=== PATIENT | female | born 1955 | race Caucasian/White ===

== ENCOUNTER 2017-06-02 18:25 | Inpatient (IN) | payer MEDICAID ==
[~2017-06-02] VITALS: Ht 162.6 cm; Wt 70.0 kg
[~2017-06-02 18:25] MED LIST: asa PO; nyquil PO
[2017-06-02 18:47] LABS: URINE BLOOD (Dip) POC Trace-intact (NEGATIVE)
--- NOTE | 2017-06-02 18:48 | ERD ---
ER Documentation Chief Complaint Chief Complaint persistent flu HPI 61-year-old female with no significant previous medical history presents to the ED via rescue ambulance with multiple complaints including chest pain, palpitations, fevers and dyspnea. Patient reports a 3 month history of intermittent palpitations, sharp nonradiating chest pain, body aches, nonproductive cough, shortness of breath, fevers and chills. No leg pain or swelling. Denies exertional dyspnea, orthopnea or PND. Reports extreme cold insensitivity and symptoms usually brought on by me exposed to a fan or air conditioning. She reports having these symptoms almost yearly during the winter but they resolve in the summertime. No abdominal pain, nausea, vomiting , diarrhea or constipation. Denies dysuria, polyuria, hematuria or flank pain. She had negative workup in 2011 for chest pain. ROS All systems reviewed and are negative except as per history of present illness. Medications Home Meds Reported Medications Aspirin* (Aspirin*) 325 Mg Tablet, 325 MG PO Y for CHEST PAIN, TAB 06/02/17 Aspirin Ec (Aspir 81) 81 Mg Tablet.dr, 81 MG PO DAILY, #30 TAB 06/02/17 Ibuprofen* (Advil*) 200 Mg Capsule, 200 MG PO Q6H Y for PAIN, CAP 06/02/17 Discontinued Reported Medications [nyquil] No Conflict Check, TBS PO Q12, #1 07/15/11 [asa] No Conflict Check, 81 PO DAILY 07/15/11 [asa] No Conflict Check, 81 PO DAILY 07/15/11 Allergies Allergies: Coded Allergies: No Known Allergy (Unverified , 06/02/17) PMhx/Soc Reviewed in chart. As per HPI. Lives alone. History of Surgery: No Anesthesia Reaction: No Hx Neurological Disorder: No Hx Respiratory Disorders: No Hx Cardiac Disorders: No Hx Psychiatric Problems: No Hx Miscellaneous Medical Probl: No Hx Alcohol Use: No Hx Substance Use: No Hx Tobacco Use: No FmHx No coronary artery disease or sudden cardiac . Physical Exam Vitals Vital Signs Date Time Temp Pulse Resp B/P Pulse Ox O2 Delivery O2 Flow Rate FiO2 06/02/17 21:20 98.7 72 19 43/87 99 Nasal Cannula 2.0 06/02/17 20:10 98.5 72 18 136/76 99 Nasal Cannula 2.0 06/02/17 19:49 76 20 125/73 99 Room Air 06/02/17 18:40 Nasal Cannula 2 06/02/17 18:40 99.0 93 20 148/88 99 Room Air 06/02/17 18:26 98.4 95 16 164/81 98 Physical Exam Const: Alert, anxious no acute distress. Head: Atraumatic Eyes: Normal Conjunctiva ENT: Normal External Ears, Nose and Mouth. Neck: Full range of motion.. No lymphadenopathy or masses. No meningismus. Resp: Breath sounds equal and clear to auscultation bilaterally Cardio: Regular rate and rhythm, no murmurs. Chest Wall: No tenderness. Abd: Soft, non tender, non distended. Normal bowel sounds Skin: No petechiae or rashes Back: No midline or flank tenderness Ext: No cyanosis, or edema. No calf swelling or tenderness Neur: Awake and alert Psych: Anxious but not depressed. Result Diagram: 06/02/17183906/02/171839 Results 24 hrs Laboratory Tests Test 06/02/17 18:30 06/02/17 18:40 06/02/17 18:45 Urine Color YELLOW Urine Clarity CLEAR Urine pH 5.0 Urine Specific [place] 1.013 Urine Ketones NEGATIVEmg/dL Urine Nitrite NEGATIVEmg/dL Urine Bilirubin NEGATIVEmg/dL Urine Urobilinogen 1+mg/dL Urine Leukocyte Esterase 1+Benjamin/ul Urine Microscopic RBC 0/HPF Urine Microscopic WBC 5/HPF Urine Squamous Epithelial Cells FEW/HPF Urine Mucus FEW/HPF Urine Hemoglobin NEGATIVEmg/dL Urine Glucose NEGATIVEmg/dL Urine Total Protein NEGATIVEmg/dl White Blood Count 8.610^3/ul Red Blood Count 3.8910^6/ul Hemoglobin 13.2g/dl Hematocrit 36.6% Mean Corpuscular Volume 94.1fl Mean Corpuscular Hemoglobin 33.9pg Mean Corpuscular Hemoglobin Concent 36.1g/dl Red Cell Distribution Width 12.1% Platelet Count 68182^3/UL Mean Platelet Volume 11.4fl Neutrophils % 56.8% Lymphocytes % 35.2% Monocytes % 5.8% Eosinophils % 1.3% Basophils % 0.7% Nucleated Red Blood Cells % 0.0/100WBC Neutrophils # 4.910^3/ul Lymphocytes # 3.010^3/ul Monocytes # 0.510^3/ul Eosinophils # 0.110^3/ul Basophils # 0.110^3/ul Nucleated Red Blood Cells # 0.010^3/ul Sodium Level 143mmol/L Potassium Level 3.7mmol/L Chloride Level 105mmol/L Carbon Dioxide Level 27mmol/L Anion Gap 15 Blood Urea Nitrogen 17mg/dl Creatinine 0.96mg/dl Glucose Level 128mg/dl Calcium Level 9.6mg/dl Total Bilirubin 0.4mg/dl Direct Bilirubin 0.00mg/dl Indirect Bilirubin 0.4mg/dl Aspartate Amino Transf (AST/SGOT) 19IU/L Alanine Aminotransferase (ALT/SGPT) 24IU/L Alkaline Phosphatase 69IU/L Troponin I < 0.012ng/ml Total Protein 7.8g/dl Albumin 4.3g/dl Globulin 3.50g/dl Albumin/Globulin Ratio 1.22 Thyroid Stimulating Hormone (TSH) 2.670MIU/L Bedside Urine pH (LAB) 5.5 Bedside Urine Protein (LAB) Negative Bedside Urine Glucose (UA) Negative Bedside Urine Ketones (LAB) Negative Bedside Urine Blood Trace-intact Bedside Urine Nitrite (LAB) Negative Bedside Urine Leukocyte Esterase (L Trace Current Medications Medications (Trade) Dose Ordered Sig/[place] Route PRN Reason Start Time Stop Time Status Last Admin Dose Admin Ondansetron HCl 4 mg 4 mg STK-MED ONCE .ROUTE 06/02/17 18:56 06/02/17 18:57 DC Sodium Chloride (NS) 500 ml @ 500 mls/hr Q1H STAT IV 06/02/17 19:01 06/02/17 20:00 DC 06/02/17 19:03 Ondansetron HCl (Zofran Inj) 4 mg ONCE STAT IV 06/02/17 19:01 06/02/17 19:02 DC 06/02/17 19:03 Aspirin (Aspirin) 325 mg ONCE ONCE PO 06/02/17 19:30 06/02/17 19:31 DC 06/02/17 19:13 Ondansetron HCl (Zofran Inj) 4 mg ER BRIDGE PRN IV NAUSEA AND/OR VOMITING 06/02/17 21:00 06/03/17 20:59 Acetaminophen (Tylenol Tab) 650 mg ER BRIDGE PRN PO MILD PAIN/FEVER 06/02/17 21:00 06/03/17 20:59 LABS: Unremarkable. EKG: TIME: 18: 53. Sinus rhythm. Ventricular rate 85. Normal [place] QRS. ST segment elevation in aVR. Q waves in leads V1 through V6. No acute ST segment elevation or depression. No ectopy. EP Interpretation: Abnormal EKG. Unchanged from description of an EKG July 2011. IMAGING: The cardiac silhouette is normal. The costophrenic angles are clear. No effusions or infiltrates. EP interpretation: Normal chest x-ray. Procedures/MDM DOCUMENTS REVIEWED: ED nurse, prior ED admission in 2011 for chest pain MEDICAL DECISION MAKIN-year-old female with no significant previous medical history presents to the ED via rescue ambulance with multiple complaints including chest pain, palpitations, fevers and dyspnea. Is with multiple complaints of uncertain etiology. TSH is normal there is no evidence of hypothyroidism. Patient with a complaints of intermittent chest pain and ST elevation in aVR with septal Q waves. No acute chest pain at this time. No cardiac dysrhythmia. No leukocytosis, fever, service criteria or evidence of an occult infectious process. No radiographic evidence of pneumonia. Anxiety disorder certainly possible. Patient be admitted to telemetry for further risk stratification, evaluation and management. Counseled patient regarding diagnosis, diagnostic results and plan for admission. CALLS/CONSULTS: Time 20:15, Dr. Downey, Recommends patient to telemetry. PATIENT CARE TRANSITIONED: Time: 20: 20., Dr. Downey. Departure Diagnosis: Primary Impression: Chest pain Chest pain type: unspecified Qualified Code: R07.9 - Chest pain, unspecified type Additional Impression: Anxiety Condition: Serious ABHI CHÁVEZ MD Jun 02, 2017 18:48
[2017-06-02] MEDS ORDERED: ONDANSETRON 4 MG INJ ONE (18:56)
[2017-06-02 18:57] LABS: BASOPHIL # 0.1 10^3/ul (0.0-0.1); BASOPHILS % 0.7 % (0.0-2.0); EOSINOPHILS # 0.1 10^3/ul (0.0-0.5); EOSINOPHILS % 1.3 % (0.0-7.0); HEMATOCRIT 36.6 % (37.0-47.0); HEMOGLOBIN 13.2 g/dl (12.0-16.0); LYMPHOCYTES % 35.2 % (15.0-51.0); MEAN CORPUSCULAR HEMOGLOBIN 33.9 pg (29.0-33.0); MEAN CORPUSCULAR HGB CONC 36.1 g/dl (32.0-37.0); MEAN CORPUSCULAR VOLUME 94.1 fl (82.0-101.0); MEAN PLATELET VOLUME 11.4 fl (7.4-10.4); MONOCYTE # 0.5 10^3/ul (0.3-0.9); MONOCYTES % 5.8 % (0.0-11.0); NEUTROPHIL # 4.9 10^3/ul (1.6-7.5); NEUTROPHILS % 56.8 % (39.0-77.0); PLATELET COUNT 270 10^3/UL (140-415); RED BLOOD COUNT 3.89 10^6/ul (4.20-5.40); RED CELL DISTRIBUTION WIDTH 12.1 % (11.5-14.5); WHITE BLOOD COUNT 8.6 10^3/ul (4.8-10.8)
[2017-06-02] MEDS ORDERED: ONDANSETRON 4 MG INJ IV STA (19:01)
[2017-06-02] MEDS ORDERED: SOD CHLORIDE 0.9% 500 ML IV STA (19:01)
[2017-06-02 19:16] LABS: ALANINE AMINOTRANSFERASE 24 IU/L (13-69); ALBUMIN 4.3 g/dl (3.3-4.9); ALBUMIN/GLOBULIN RATIO 1.22; ALKALINE PHOSPHATASE 69 IU/L (42-121); ANION GAP 15 (8-16); ASPARTATE AMINO TRANSFERASE 19 IU/L (15-46); BILIRUBIN,INDIRECT 0.4 mg/dl (0-1.1); BILIRUBIN,TOTAL 0.4 mg/dl (0.2-1.3); BLOOD UREA NITROGEN 17 mg/dl (7-20); CALCIUM 9.6 mg/dl (8.4-10.2); CARBON DIOXIDE 27 mmol/L (21-31); CHLORIDE 105 mmol/L (97-110); CREATININE 0.96 mg/dl (0.44-1.00); GLUCOSE 128 mg/dl (70-220); POTASSIUM 3.7 mmol/L (3.5-5.1); SODIUM 143 mmol/L (135-144); TOTAL PROTEIN 7.8 g/dl (6.1-8.1)
[2017-06-02 19:30] LABS: TROPONIN-I < 0.012 ng/ml (0.00-0.12)
[2017-06-02] MEDS ORDERED: ASPIRIN 325 MG TAB PO ONE (19:30)
[2017-06-02 19:32] LABS: ADD UMIC YES; UR ASCORBIC ACID NEGATIVE (NEGATIVE); UR BILIRUBIN (Dip) NEGATIVE (NEGATIVE); UR BLOOD (Dip) NEGATIVE (NEGATIVE); UR CLARITY CLEAR (CLEAR); UR COLOR YELLOW (YELLOW); UR GLUCOSE (Dip) NEGATIVE (NEGATIVE); UR KETONES (Dip) NEGATIVE (NEGATIVE); UR LEUKOCYTE ESTERASE (Dip) 1+ Leu/ul (NEGATIVE); UR MUCUS FEW /HPF (NONE SEEN); UR NITRITE (Dip) NEGATIVE (NEGATIVE); UR RBC 0 /HPF (0-5); UR SPECIFIC GRAVITY (Dip) 1.013 (1.003-1.030); UR SQUAMOUS EPITHELIAL CELL FEW /HPF (FEW); UR TOTAL PROTEIN (Dip) NEGATIVE (NEGATIVE); UR UROBILINOGEN (Dip) 1+ mg/dL (NEGATIVE)
--- NOTE | 2017-06-02 20:15 | RADRPT ---
PROCEDURE: XR Chest. CLINICAL INDICATION: Chest pain. TECHNIQUE: AP Portable chest. COMPARISON: No pertinent prior examinations were submitted for comparison. FINDINGS: The cardiomediastinal silhouette is normal. The lungs are clear. The osseous structures are unrema rkable. IMPRESSION: No acute findings. RPTAT: HIKT .Nelson Hodges MD, MD Date Time Electronically viewed and signed by .Nelson Hodges MD, MD on 06/02/2017 20:14 .T/
[2017-06-02] MEDS ORDERED: ACETAMINOPHEN 325 MG TAB PO PRN (21:00)
[2017-06-02] MEDS ORDERED: ONDANSETRON 4 MG INJ IV PRN (21:00)
[2017-06-02 21:20] VITALS: TEMP 98.7
[2017-06-02] MEDS ORDERED: IBUP200C11 PO (21:25)
[2017-06-02] MEDS ORDERED: ASPI325T4 PO (21:25)
[2017-06-02] MEDS ORDERED: ASPI-535 PO (21:25)
[2017-06-02 23:08] VITALS: PULSE 82
[2017-06-03] VITALS (8 sets, daily range): BP systolic 90–148; BP diastolic 50–79; PULSE 61–76; RESP 18–20; Ht 162.6 cm; Wt 70.0 kg
[2017-06-03] MEDS ORDERED: morphine 2 MG INJ IV PRN (00:30)
[2017-06-03] MEDS ORDERED: LORAZEPAM 2 MG INJ IV PRN (00:30)
--- NOTE | 2017-06-03 07:27 | HP ---
Date/Time of Note Date/Time of Note DATE: 06/03/17 TIME: 07:22 Assessment/Plan Lines/Catheters IV [facility] Saline Lock Assessment/Plan Assessment/Plan ASSESSMENT 61-year-old female with a history of gastritis here was flulike symptoms with generalized body ache, subjective fever/chills, shortness of breath, chest pain , cough. PLAN Continue telemetry monitoring and rule out ACS, even though symptom is more suggestive of a flu/viral etiology will check influenza A & B Continue her aspirin Will be placed on supplemental oxygen and beta-patti Check A1c, lipids and TSH in a.m. HPI/ROS Admit Date/Time Admit Date/Time Jun 02, 2017 at 20:51 Hx of Present Illness This is a 61-year-old female with a history of gastritis who presented to the emergency department complaining of cough, shortness of breath, generalized body ache, fever/chills, shortness of breath and chest pain. She said during this time of the ER, she gets "flu". Chest pain is described as sharp and is nonradiating. Her cough is dry. When she presented to the ER, blood pressure was 164/72. EKG however showed an ST elevation in aVR and the Q waves in V1 through V6 but according to ER this is unchanged in comparison to the EKG from 2012. First 2 troponins are negative. CBC and CMP are unremarkable and a chest x-ray was no active disease. PMH/Family/Social Social History Smoking Status: Former smoker Exam/Review of Systems Vital Signs Vitals Vital Signs Date Time Temp Pulse Resp B/P Pulse Ox O2 Delivery O2 Flow Rate FiO2 06/03/17 04:41 74 06/03/17 03:51 97.7 20 148/71 97 06/02/17 23:20 Nasal Cannula 2.0 Intake and Output 06/02/17 06/02/17 06/03/17 15:00 23:00 07:00 Intake Total 120 ml Balance 120 ml Labs Result Diagram: 06/02/17183906/02/17 184 Medications Medications Current Medications Morphine Sulfate (morphine) 2 mg Q4H PRN IV PAIN LEVEL 6-10; Start 06/03/17 at 00:30 Lorazepam (Ativan) 1 mg Q4H PRN IV ANXIETY; Start 06/03/17 at 00:30 Enoxaparin Sodium (Lovenox) 40 mg DAILY SC ; Start 06/03/17 at 09:00 Aspirin (Halfprin) 81 mg DAILY PO ; Start 06/03/17 at 09:00; Status UNV Metoprolol Tartrate (Lopressor) 25 mg BID PO ; Start 06/03/17 at 09:00; Status UNV ISIDRA MIRANDA MD Jun 03, 2017 07:27
[2017-06-03 07:42] LABS: BASOPHILS % 0.4 % (0.0-2.0); EOSINOPHILS # 0.1 10^3/ul (0.0-0.5); HEMATOCRIT 33.5 % (37.0-47.0); HEMOGLOBIN 11.6 g/dl (12.0-16.0); LYMPHOCYTES # 2.7 10^3/ul (0.8-2.9); LYMPHOCYTES % 29.7 % (15.0-51.0); MEAN CORPUSCULAR HEMOGLOBIN 33.2 pg (29.0-33.0); MEAN CORPUSCULAR HGB CONC 34.6 g/dl (32.0-37.0); MEAN PLATELET VOLUME 11.6 fl (7.4-10.4); MONOCYTE # 0.5 10^3/ul (0.3-0.9); MONOCYTES % 5.7 % (0.0-11.0); NEUTROPHIL # 5.7 10^3/ul (1.6-7.5); PLATELET COUNT 223 10^3/UL (140-415); RED BLOOD COUNT 3.49 10^6/ul (4.20-5.40); RED CELL DISTRIBUTION WIDTH 12.2 % (11.5-14.5); WHITE BLOOD COUNT 9.1 10^3/ul (4.8-10.8)
[2017-06-03 07:54] LABS: ALBUMIN 3.7 g/dl (3.3-4.9); ALBUMIN/GLOBULIN RATIO 1.23; BILIRUBIN,INDIRECT 0.2 mg/dl (0-1.1); BILIRUBIN,TOTAL 0.2 mg/dl (0.2-1.3); CALCIUM 9.3 mg/dl (8.4-10.2); CREATININE 1.01 mg/dl (0.44-1.00); POTASSIUM 4.4 mmol/L (3.5-5.1); TOTAL PROTEIN 6.7 g/dl (6.1-8.1)
[2017-06-03 08:24] LABS: THYROID STIMULATING HORMONE 1.9 MIU/L (0.465-4.680)
[2017-06-03] MEDS ORDERED: ENOXAPARIN 40 MG/0.4 ML SYG SC SCH (09:00)
[2017-06-03] MEDS ORDERED: METOPROLOL 25 MG TAB PO SCH (09:00)
[2017-06-03] MEDS ORDERED: ASPIRIN (EC) 81 MG TAB PO SCH (09:00)
--- NOTE | 2017-06-03 11:36 | PN ---
Date/Time of Note Date/Time of Note DATE: 06/03/17 TIME: 11:35 Assessment/Plan VTE Prophylaxis VTE Prophylaxis Intervention: LMWH Lines/Catheters IV [facility]from [facility] Saline Lock Assessment/Plan Chief Complaint/Hosp Course Subjective: Events noted Objective: Vital signs stable. T-max 99 Physical exam No pallor adenopathy JVD Regular no murmur rub gallop Clear bilaterally nontender Benign No edema Assessment and plan 1. Atypical chest pain probable pleurisy. Stable continue supportive care 2. Recent upper respiratory infection? Bronchitis? Stable continue supportive care 3. Past tobacco 4. Abnormal EKG? 5. Thyroid nodule? Ultrasound. Problems: Exam/Review of Systems Vital Signs Vitals Vital Signs Date Time Temp Pulse Resp B/P Pulse Ox O2 Delivery O2 Flow Rate FiO2 06/03/17 08:25 62 06/03/17 07:43 98.0 18 123/67 98 06/02/17 23:20 Nasal Cannula 2.0 Intake and Output 06/02/17 06/02/17 06/03/17 15:00 23:00 07:00 Intake Total 120 ml Balance 120 ml Results Result Diagram: 06/03/17 0635 06/03/17 0635 Results 24 hrs Laboratory Tests Test 06/02/17 18:30 06/02/17 18:40 06/02/17 18:45 06/03/17 00:34 Urine Color YELLOW Urine Clarity CLEAR Urine pH 5.0 Urine Specific [place] 1.013 Urine Ketones NEGATIVE Urine Nitrite NEGATIVE Urine Bilirubin NEGATIVE Urine Urobilinogen 1+ H Urine Leukocyte Esterase 1+ H Urine Microscopic RBC 0 Urine Microscopic WBC 5 Urine Squamous Epithelial Cells FEW Urine Mucus FEW A Urine Hemoglobin NEGATIVE Urine Glucose NEGATIVE Urine Total Protein NEGATIVE White Blood Count 8.6 Red Blood Count 3.89 L Hemoglobin 13.2 Hematocrit 36.6 L Mean Corpuscular Volume 94.1 Mean Corpuscular Hemoglobin 33.9 H Mean Corpuscular Hemoglobin Concent 36.1 Red Cell Distribution Width 12.1 Platelet Count 270 Mean Platelet Volume 11.4 H Neutrophils % 56.8 Lymphocytes % 35.2 Monocytes % 5.8 Eosinophils % 1.3 Basophils % 0.7 Nucleated Red Blood Cells % 0.0 Neutrophils # 4.9 Lymphocytes # 3.0 H Monocytes # 0.5 Eosinophils # 0.1 Basophils # 0.1 Nucleated Red Blood Cells # 0.0 Sodium Level 143 Potassium Level 3.7 Chloride Level 105 Carbon Dioxide Level 27 Anion Gap 15 Blood Urea Nitrogen 17 Creatinine 0.96 Glucose Level 128 Calcium Level 9.6 Total Bilirubin 0.4 Direct Bilirubin 0.00 Indirect Bilirubin 0.4 Aspartate Amino Transf (AST/SGOT) 19 Alanine Aminotransferase (ALT/SGPT) 24 Alkaline Phosphatase 69 Troponin I < 0.012 < 0.012 Total Protein 7.8 Albumin 4.3 Globulin 3.50 H Albumin/Globulin Ratio 1.22 Thyroid Stimulating Hormone (TSH) 2.670 Bedside Urine pH (LAB) 5.5 Bedside Urine Protein (LAB) Negative Bedside Urine Glucose (UA) Negative Bedside Urine Ketones (LAB) Negative Bedside Urine Blood Trace-intact H Bedside Urine Nitrite (LAB) Negative Bedside Urine Leukocyte Esterase (L Trace H Test 06/03/17 06:35 06/03/17 06:39 White Blood Count 9.1 Red Blood Count 3.49 L Hemoglobin 11.6 L Hematocrit 33.5 L Mean Corpuscular Volume 96.0 Mean Corpuscular Hemoglobin 33.2 H Mean Corpuscular Hemoglobin Concent 34.6 Red Cell Distribution Width 12.2 Platelet Count 223 Mean Platelet Volume 11.6 H Neutrophils % 63.0 Lymphocytes % 29.7 Monocytes % 5.7 Eosinophils % 1.0 Basophils % 0.4 Nucleated Red Blood Cells % 0.0 Neutrophils # 5.7 Lymphocytes # 2.7 Monocytes # 0.5 Eosinophils # 0.1 Basophils # 0.0 Nucleated Red Blood Cells # 0.0 Sodium Level 145 H Potassium Level 4.4 Chloride Level 109 Carbon Dioxide Level 25 Anion Gap 15 Blood Urea Nitrogen 19 Creatinine 1.01 H Glucose Level 125 Hemoglobin A1c 4.8 Calcium Level 9.3 Total Bilirubin 0.2 Direct Bilirubin 0.00 Indirect Bilirubin 0.2 Aspartate Amino Transf (AST/SGOT) 17 Alanine Aminotransferase (ALT/SGPT) 23 Alkaline Phosphatase 59 Total Protein 6.7 # Albumin 3.7 Globulin 3.00 Albumin/Globulin Ratio 1.23 Triglycerides Level 62 Cholesterol Level 175 LDL Cholesterol, Calculated 105 HDL Cholesterol 58 Cholesterol/HDL Ratio 3.0 Thyroid Stimulating Hormone (TSH) 1.900 Troponin I < 0.012 Medications Medications Current Medications Morphine Sulfate (morphine) 2 mg Q4H PRN IV PAIN LEVEL 6-10; Start 06/03/17 at 00:30 Lorazepam (Ativan) 1 mg Q4H PRN IV ANXIETY; Start 06/03/17 at 00:30 Enoxaparin Sodium (Lovenox) 40 mg DAILY SC ; Start 06/03/17 at 09:00 Aspirin (Halfprin) 81 mg DAILY PO Last administered on 06/03/17t 09:36; Admin Dose 81 MG; Start 06/03/17 at 09:00 Metoprolol Tartrate (Lopressor) 25 mg BID PO ; Start 06/03/17 at 09:00 LISA DIA MD Jun 03, 2017 11:36
--- NOTE | 2017-06-03 14:45 | CONS ---
DATE OF ADMISSION: 06/02/2017 DATE OF CONSULTATION: 06/03/2017 CARDIOLOGY CONSULTATION REASON FOR EVALUATION: Tachycardia. HISTORY OF PRESENT ILLNESS: Ms. Person is a 61-year-old woman with history of gastritis and flu-li ke symptoms, who comes to the hospital now for evaluation of flu-like symptoms. The patient had vani e chest pain in the setting of this event and I have been asked to see the patient in consultation f or her cardiac condition. The patient appears to be fairly hemodynamically stable now. She is not in chest pain at the moment. She is being treated for bronchitis. Her EKG is fairly normal. I thi nk the patient is hemodynamically stable. There is no class I indication for inpatient risk stratif ication. For now, we will optimize her medical management with regard to bronchitis therapy and I w ill advise outpatient stress test. PAST MEDICAL HISTORY: History of bronchitis, history of possible psychiatric illness, history of pr ior admissions with chest pains. ALLERGIES: NO KNOWN DRUG ALLERGIES. SOCIAL HISTORY: No tobacco use, no drug use. FAMILY HISTORY: ____ family history significant sudden cardiac or premature coronary artery d isease. MEDICATIONS: The patient is on: 1. Lovenox 40 mg subq b.i.d. 2. Aspirin 81 mg a day. 3. Metoprolol 25 mg b.i.d. 4. Morphine. 5. ____. 6. Lorazepam. REVIEW OF SYSTEMS: CONSTITUTIONAL: No fevers, no chills, tachycardia described. HEENT: No changes in vision or hearing. CARDIAC: Chest pain is reported. RESPIRATORY: Flu-like symptoms. GASTROINTESTINAL: Gastritis. No nausea, vomiting. GENITOURINARY: No dysuria, hematuria. NEUROLOGIC: No focal neurologic deficits. PHYSICAL EXAMINATION: VITAL SIGNS: Temperature is 98.0, heart rate is 79, blood pressure 90/50. GENERAL: She is a thin woman in no acute distress, alert and oriented x3, aware of her condition. HEAD: Normocephalic, atraumatic. Eyes anicteric. NECK: Supple. JVD 6-7 cm. There is no lymphadenopathy, no thyromegaly. HEART: Regular with soft holosystolic murmur mid chest. The patient's PMI is minimally displaced. There is no S3. LUNGS: Coarse at the bases. ABDOMEN: Distended, bowel sounds are present. GENITOURINARY: Grossly intact. EXTREMITIES: Show no clubbing, cyanosis, or edema. LABORATORY DATA: White blood cell count 9.1, hemoglobin ____ platelets 223. Sodium 145, potassium 4.4, BUN 19, creatinine 1.1. Troponin is negative at 0.012. ASSESSMENT AND PLAN: 1. Chest pain: Chest pain is likely atypical. Troponins are negative. Outpatient risk stratifica tion ____ palpitations, no documented arrhythmia noticed. A 2D echo is performed and ejection fract ion is normal. 2. Hypertension. Blood pressure well maintained. There is no evidence of any hemodynamic instabil ity. 3. Gastritis. Continue gastritis care. 4. Bronchitis. The patient is on antibiotics. I would like to thank Dr. Downey for referring this patient for my evaluation. Dictated By: RENETTA TENORIO MD ML/NTS Conf#: [id number] DID#: [id number] CC: ISIDRA DOWNEY MD;*EndCC*
--- NOTE | 2017-06-03 15:53 | RADRPT ---
Echocardiogram Report Patient Name: MIGUEL TOVAR Gender: Female Date: 1955 Study Date: 03-Jun-2017 Concession Stand Attendant: [facility] Location: 516-A Ref. Physician: ISIDRA MIRANDA Quality: Adequate Procedures: Transthoracic echocardiogram with complete 2D, M-Mode, and doppler examination. Indications: Chest Pain. 2D/M Mode Doppler Measurement Value Normal Ranges Measurement Value Normal Ranges LVIDd 2D 3.6 3.5 - 5.6 cm AV Peak Brannon 1.4 m/sec LVIDs 2D 2.3 2.1 - 4.1 cm AV Peak PG 8.0 mmHg FS 2D 35.9 % LVOT Peak Brannon 1.1 m/sec LVPWd 2D 1.1 0.6 - 1.1 cm LVOT Peak PG 5.0 mmHg IVSd 2D 1.4 0.6 - 1.1 cm MV E Peak Brannon 0.9 m/sec IVS/LVPW 2D 1.2 MV A Peak Brannon 0.7 m/sec AoR Diam 2D 3.1 2.0 - 3.7 cm MV E/A 1.2 LA/Ao 2D 1 0 - 1 MV Decel Time 183 msec EDV 2D 47.4 cm3 MV E/A 1.2 ESV 2D 12.5 cm3 TR Peak Brannon 2.5 m/sec LA Dimen 2D 3.3 2.3 - 4.0 cm TR Peak PG 26.0 mmHg RVSP 29.0 mmHg Findings Left Ventricle: Normal left ventricular systolic function. Normal left ventricular cavity size. Sigmoid septum. Ejection fraction is visually estimated at 65 %. Tissue Doppler/Mitral Doppler indices are consistent with impaired relaxation (Stage I diastolic dysfunction). Right Ventricle: Normal right ventricular size. Normal right ventricular systolic function. Left Atrium: The left atrium is normal in size. Right Atrium: The right atrium is normal in size. Mitral Valve: Mild mitral leaflet calcification. Mild mitral annular calcification. Trace mitral regurgitation. Aortic Valve: Normal appearance of the aortic valve. No significant aortic stenosis or insufficiency. Tricuspid Valve: Normal appearance of the tricuspid valve. Estimated peak PA systolic pressure 29 mmHg. There is mild tricuspid regurgitation. Pulmonic Valve: Pulmonic valve not well visualized. There is trace pulmonic regurgitation. Pericardium: Normal pericardium with no significant pericardial effusion. Aorta: Normal aortic root. IVC: Normal size and normal respiratory collapse consistent with normal right atrial pressure. Conclusions Normal left ventricular systolic function. Normal left ventricular cavity size. Sigmoid septum. Ejection fraction is visually estimated at 65 %. Tissue Doppler/Mitral Doppler indices are consistent with impaired relaxation (Stage I diastolic dysfunction). Mild mitral leaflet calcification. Mild mitral annular calcification. Trace mitral regurgitation. Normal appearance of the tricuspid valve. Estimated peak PA systolic pressure 29 mmHg. There is mild tricuspid regurgitation. Electronically Signed By: Milo Wren 03-Jun-2017 15:53:04 -0800 Patient Name: MIGUEL TOVAR Study Date: 03-Jun-2017 [id number]
--- NOTE | 2017-06-03 15:59 | DS ---
Date/Time of Note Date/Time of Note DATE: 06/03/17 TIME: 15:53 Discharge Summary Admission/Discharge Info Admit Date/Time Jun 02, 2017 at 20:51 Discharge Date/Time Discharge Diagnosis non cardiac chest pain Patient Condition: Stable Consults Cardio Procedures labs/ echo Hx of Present Illness 61y F admitted w atypical cp. ruled out for Acs/ arrhythmias. cxr - normal. seen by cardiology. echo EF- normal. stable and fit for discharge. i gave her the choice of staying overnight/ ro arrhythmias, but she states that she'd rather go home. Tried to reinforce the present benign symptoms that she has; but with no success. Potential pleurisy from recent bronchitis. Or Palpitations from benign tachycardias. All of which can be followed up as an outpatient. Hospital Course 61y F admitted w atypical cp. ruled out for Acs/ arrhythmias. cxr - normal. seen by cardiology. echo EF- normal. stable and fit for discharge. i gave her the choice of staying overnight/ ro arrhythmias, but she states that she'd rather go home. Tried to reinforce the present benign symptoms that she has; but with no success. Potential pleurisy from recent bronchitis. Or Palpitations from benign tachycardias. All of which can be followed up as an outpatient. 06/03: Subjective: Events noted Objective: Vital signs stable. T-max 99 Physical exam No pallor adenopathy JVD Regular no murmur rub gallop Clear bilaterally nontender Benign No edema Assessment and plan 1. Atypical chest pain probable pleurisy. Stable discharge. 2. Recent upper respiratory infection? Bronchitis? Stable cont supportive care 3. Past tobacco 4. Abnormal EKG? no fever, no wbc, no fluid on echo. 5. Thyroid nodule? Ultrasound ordered, but she wants to go home. tsh normal. Home Meds Reported Medications Aspirin* (Aspirin*) 325 Mg Tablet, 325 MG PO Y for CHEST PAIN, TAB 06/02/17 Aspirin Ec (Aspir 81) 81 Mg Tablet.dr, 81 MG PO DAILY, #30 TAB 06/02/17 Ibuprofen* (Advil*) 200 Mg Capsule, 200 MG PO Q6H Y for PAIN, CAP 06/02/17 Discontinued Reported Medications [nyquil] No Conflict Check, TBS PO Q12, #1 07/15/11 [asa] No Conflict Check, 81 PO DAILY 07/15/11 [asa] No Conflict Check, 81 PO DAILY 07/15/11 Primary Care Provider Not On Staff Doctor Time spent on discharge: > 30 minutes Pending Labs Laboratory Tests Test 06/02/17 18:30 06/02/17 18:40 06/02/17 18:45 06/03/17 00:34 Urine Color YELLOW (YELLOW) Urine Clarity CLEAR (CLEAR) Urine pH 5.0 (5.0-9.0) Urine Specific Rayle 1.013 (1.003-1.030) Urine Ketones NEGATIVEmg/dL (NEGATIVE) Urine Nitrite NEGATIVEmg/dL (NEGATIVE) Urine Bilirubin NEGATIVEmg/dL (NEGATIVE) Urine Urobilinogen 1+mg/dL (NEGATIVE) Urine Leukocyte Esterase 1+Benjamin/ul (NEGATIVE) Urine Microscopic RBC 0/HPF (0-5) Urine Microscopic WBC 5/HPF (0-5) Urine Squamous Epithelial Cells FEW/HPF (FEW) Urine Mucus FEW/HPF (NONE SEEN) Urine Hemoglobin NEGATIVEmg/dL (NEGATIVE) Urine Glucose NEGATIVEmg/dL (NEGATIVE) Urine Total Protein NEGATIVEmg/dl (NEGATIVE) White Blood Count 8.610^3/ul (4.8-10.8) Red Blood Count 3.8910^6/ul (4.20-5.40) Hemoglobin 13.2g/dl (12.0-16.0) Hematocrit 36.6% (37.0-47.0) Mean Corpuscular Volume 94.1fl (82.0-101.0) Mean Corpuscular Hemoglobin 33.9pg (29.0-33.0) Mean Corpuscular Hemoglobin Concent 36.1g/dl (32.0-37.0) Red Cell Distribution Width 12.1% (11.5-14.5) Platelet Count 09357^3/UL (140-415) Mean Platelet Volume 11.4fl (7.4-10.4) Neutrophils % 56.8% (39.0-77.0) Lymphocytes % 35.2% (15.0-51.0) Monocytes % 5.8% (0.0-11.0) Eosinophils % 1.3% (0.0-7.0) Basophils % 0.7% (0.0-2.0) Nucleated Red Blood Cells % 0.0/100WBC (0.0-0.0) Neutrophils # 4.910^3/ul (1.6-7.5) Lymphocytes # 3.010^3/ul (0.8-2.9) Monocytes # 0.510^3/ul (0.3-0.9) Eosinophils # 0.110^3/ul (0.0-0.5) Basophils # 0.110^3/ul (0.0-0.1) Nucleated Red Blood Cells # 0.010^3/ul (0.0-0.0) Sodium Level 143mmol/L (135-144) Potassium Level 3.7mmol/L (3.5-5.1) Chloride Level 105mmol/L (97-110) Carbon Dioxide Level 27mmol/L (21-31) Anion Gap 15 (8-16) Blood Urea Nitrogen 17mg/dl (7-20) Creatinine 0.96mg/dl (0.44-1.00) Glucose Level 128mg/dl (70-220) Calcium Level 9.6mg/dl (8.4-10.2) Total Bilirubin 0.4mg/dl (0.2-1.3) Direct Bilirubin 0.00mg/dl (0.00-0.20) Indirect Bilirubin 0.4mg/dl (0-1.1) Aspartate Amino Transf (AST/SGOT) 19IU/L (15-46) Alanine Aminotransferase (ALT/SGPT) 24IU/L (13-69) Alkaline Phosphatase 69IU/L (42-121) Troponin I < 0.012ng/ml (0.00-0.12) < 0.012ng/ml (0.00-0.12) Total Protein 7.8g/dl (6.1-8.1) Albumin 4.3g/dl (3.3-4.9) Globulin 3.50g/dl (1.3-3.2) Albumin/Globulin Ratio 1.22 Thyroid Stimulating Hormone (TSH) 2.670MIU/L (0.465-4.680) Bedside Urine pH (LAB) 5.5 (5.0-8.5) Bedside Urine Protein (LAB) Negative (NEGATIVE) Bedside Urine Glucose (UA) Negative (NEGATIVE) Bedside Urine Ketones (LAB) Negative (NEGATIVE) Bedside Urine Blood Trace-intact (NEGATIVE) Bedside Urine Nitrite (LAB) Negative (NEGATIVE) Bedside Urine Leukocyte Esterase (L Trace (NEGATIVE) Test 06/03/17 06:35 06/03/17 06:39 White Blood Count 9.110^3/ul (4.8-10.8) Red Blood Count 3.4910^6/ul (4.20-5.40) Hemoglobin 11.6g/dl (12.0-16.0) Hematocrit 33.5% (37.0-47.0) Mean Corpuscular Volume 96.0fl (82.0-101.0) Mean Corpuscular Hemoglobin 33.2pg (29.0-33.0) Mean Corpuscular Hemoglobin Concent 34.6g/dl (32.0-37.0) Red Cell Distribution Width 12.2% (11.5-14.5) Platelet Count 76062^3/UL (140-415) Mean Platelet Volume 11.6fl (7.4-10.4) Neutrophils % 63.0% (39.0-77.0) Lymphocytes % 29.7% (15.0-51.0) Monocytes % 5.7% (0.0-11.0) Eosinophils % 1.0% (0.0-7.0) Basophils % 0.4% (0.0-2.0) Nucleated Red Blood Cells % 0.0/100WBC (0.0-0.0) Neutrophils # 5.710^3/ul (1.6-7.5) Lymphocytes # 2.710^3/ul (0.8-2.9) Monocytes # 0.510^3/ul (0.3-0.9) Eosinophils # 0.110^3/ul (0.0-0.5) Basophils # 0.010^3/ul (0.0-0.1) Nucleated Red Blood Cells # 0.010^3/ul (0.0-0.0) Sodium Level 145mmol/L (135-144) Potassium Level 4.4mmol/L (3.5-5.1) Chloride Level 109mmol/L (97-110) Carbon Dioxide Level 25mmol/L (21-31) Anion Gap 15 (8-16) Blood Urea Nitrogen 19mg/dl (7-20) Creatinine 1.01mg/dl (0.44-1.00) Glucose Level 125mg/dl (70-220) Hemoglobin A1c 4.8% (0-5.9) Calcium Level 9.3mg/dl (8.4-10.2) Total Bilirubin 0.2mg/dl (0.2-1.3) Direct Bilirubin 0.00mg/dl (0.00-0.20) Indirect Bilirubin 0.2mg/dl (0-1.1) Aspartate Amino Transf (AST/SGOT) 17IU/L (15-46) Alanine Aminotransferase (ALT/SGPT) 23IU/L (13-69) Alkaline Phosphatase 59IU/L (42-121) Total Protein 6.7g/dl (6.1-8.1) Albumin 3.7g/dl (3.3-4.9) Globulin 3.00g/dl (1.3-3.2) Albumin/Globulin Ratio 1.23 Triglycerides Level 62mg/dl (0-149) Cholesterol Level 175mg/dl (100-200) LDL Cholesterol, Calculated 105mg/dl HDL Cholesterol 58mg/dl (35-98) Cholesterol/HDL Ratio 3.0RATIO Thyroid Stimulating Hormone (TSH) 1.900MIU/L (0.465-4.680) Troponin I < 0.012ng/ml (0.00-0.12) LISA DIA MD Jun 03, 2017 15:59
[2017-06-03] MEDS ORDERED: IBUPROFEN 800 MG TAB PO PRN (16:00)
[2017-06-03] MEDS ORDERED: IBUP800T25 PO (16:03)
--- NOTE | 2017-06-03 16:03 | PDOCDIS ---
Discharge Instructions DIAGNOSIS Discharge Diagnosis non cardiac chest pain CONDITION Patient Condition: Stable HOME CARE INSTRUCTIONS: Diet Instructions: Regular ACTIVITY: Activity Restrictions: Slowly Increase Activity Rest between Activity Do not Drive FOLLOW UP/APPOINTMENTS Follow-up Plan Appt Primary 1wk. Dr Wren -2wks. LISA DIA MD Jun 03, 2017 16:03
--- NOTE | 2017-06-03 16:25 | RADRPT ---
PROCEDURE: US Thyroid. CLINICAL INDICATION: Left lobe thyroid nodule seen on CT scan. TECHNIQUE: High-resolution sonography of the thyroid was performed in the axial and sagittal plane s. COMPARISON: None. FINDINGS: The right lobe measures 3.6 x 1.4 x 1.4 cm. The left lobe measures 4.1 x 1.7 x 1.4 cm. The isthmus measures 0.2 cm. There is a nodule inferiorly in the left lobe measuring 1.6 x 1.4 x 1.0 cm. The nodule is predominat shanti cystic, anechoic, wider than tall, has smooth margins, and no echogenic foci. A benign cystic no dule is present in the right lobe inferiorly measuring 0.4 cm. Thyroid echogenicity is normal. The thyroid is normal in size. IMPRESSION: 1. Benign-appearing nodule in the left lobe inferiorly measuring 1.6 x 1.4 x 1.0 cm. TIRADS categor y 2. 2. Benign cystic nodule in the right lobe inferiorly. 3. No further evaluation is required. RPTAT: QQ .Manolo White MD, MD Date Time Electronically viewed and signed by .Manolo White MD, on 06/03/2017 16:25 .R/
== END 2017-06-03 16:25 | disposition home or self-care (01) | DRG 313 ==
LOC: E/R 18:25 → TEL 20:51
PROVIDERS: ADMIT Internal Medicine; ATTEND Internal Medicine
DX: R07.89 Other chest pain (principal); I10 Essential (primary) hypertension; F41.9 Anxiety disorder, unspecified; R09.1 Pleurisy; R06.02 Shortness of breath; R94.31 Abnormal electrocardiogram [ECG] [EKG]; J40 Bronchitis, not specified as acute or chronic; K29.70 Gastritis, unspecified, without bleeding; Z87.891 Personal history of nicotine dependence
CPT/HCPCS: 36415; 71010; 76536; 80053; 80061; 81001; 81003; 83036; 84443; 84484; 85025; 93005; 93306; 96374; J2405; J7040